=== PATIENT | male | born 1975 | race Caucasian/White ===

== ENCOUNTER 2019-10-08 09:05 | Outpatient (CLI) | payer OTHER, SELFPAY ==
[2019-10-09 15:31] LABS: COVID-19 RT-PCR Result NEGATIVE (Negative)
== END 2019-10-08 09:25 ==
PROVIDERS: PCP Family Medicine; Visit Provider Family Medicine
DX: R05 Cough (principal)
CPT/HCPCS: U0003

== ENCOUNTER 2020-02-26 08:41 | Outpatient (CLI) | payer OTHER, SELFPAY ==
[2020-02-28 10:09] LABS: Patient Race White; SARS-CoV-2 RNA Undetected (Undetected); SARS-CoV-2 Specimen Source Nasopharynx
== END 2020-02-26 09:01 ==
PROVIDERS: PCP Family Medicine; Visit Provider Family Medicine
DX: J02.9 Acute pharyngitis, unspecified (principal)
CPT/HCPCS: U0003

== ENCOUNTER 2020-07-11 21:56 | Outpatient (CLI) | payer OTHER, SELFPAY ==
--- NOTE | 2020-07-11 09:00 | DI.RAD_ITS ---
EXAM: XR CHEST 2V PA LATERAL CLINICAL HISTORY: SOB x 1.5 years, R06.02. TECHNIQUE: 2D digital imaging was performed. COMPARISON: Chest x-ray June 2006 FINDINGS: Heart size is normal. The mediastinum is not widened. Lungs are clear. No infiltrates nor pleural effusions. Thoracic scoliosis again noted IMPRESSION: No acute pulmonary findings.Mild thoracic scoliosis is unchanged from 2017. DATA REPOSITORY: RADIATION DOSE DELIVERED:
== END 2020-07-11 21:57 ==
LOC: DI 21:59
PROVIDERS: PCP Nurse Practitioner Family; Visit Provider Nurse Practitioner Family
DX: R06.02 Shortness of breath (principal)
CPT/HCPCS: 71046

== ENCOUNTER 2020-07-12 03:24 | Outpatient (CLI) | payer OTHER, SELFPAY ==
[2020-07-12 08:36] LABS: Hemoglobin A1C 5.6 % (<5.7)
[2020-07-12 09:14] LABS: Calculated LDL 98 mg/dL (<100); Cholesterol 171 mg/dL (<200); HDL Cholesterol 64 mg/dL (40-60); Triglyceride 47 mg/dL (<150)
== END 2020-07-12 03:25 | disposition home or self-care (01) ==
LOC: LBO 03:24
PROVIDERS: PCP Nurse Practitioner Family; Visit Provider Nurse Practitioner Family
DX: Z13.220 Encounter for screening for lipoid disorders (principal); Z13.1 Encounter for screening for diabetes mellitus; Z20.822 Contact with and (suspected) exposure to COVID-19
CPT/HCPCS: 36415; 80061; U0003; 83036

== ENCOUNTER 2020-07-12 08:09 | Outpatient (CLI) | payer OTHER, SELFPAY ==
[2020-07-13 13:28] LABS: COVID-19 RT-PCR UVMMC Result Negative (Negative)
== END 2020-07-12 08:10 | disposition home or self-care (01) ==
LOC: LBO 08:10
PROVIDERS: PCP Nurse Practitioner Family; Visit Provider Nurse Practitioner Family
DX: Z20.822 Contact with and (suspected) exposure to COVID-19 (principal)
CPT/HCPCS: U0003

== ENCOUNTER → 2022-01-17 15:09 | Outpatient (CLI) | payer OTHER, SELFPAY ==
--- NOTE | 2022-01-17 15:00 | DI.RAD_ITS ---
Exam(s) XR ANKLE RT COMPLETE EXAM: XR ANKLE RT COMPLETE CLINICAL HISTORY: Pain/swelling M25.571 PAIN. TECHNIQUE: 2D digital imaging was performed. COMPARISON: No exams were available for comparison FINDINGS: 3 views No evidence of fracture nor widening of the mortise. Talar dome exhibits some hypodensity medially, possibly developing subarticular cyst. There is no obvious osteochondral defect. Tibial plafond vera ears unremarkable. On the lateral view there is some mild narrowing in the anterior aspect ankle-tib iotalar joint. Subtalar joint appears unremarkable. No os trigonum. No inferior calcaneal spur. N o abnormal density in the pre Achilles fat pad. IMPRESSION: Mild degenerative changes in the anterior aspect of the tibiotalar-ankle joint. DATA REPOSITORY: RADIATION DOSE DELIVERED:
--- NOTE | 2022-01-17 15:00 | DI.RAD_ITS ---
Exam(s) XR FOOT RT COMPLETE EXAM: XR FOOT RT COMPLETE CLINICAL HISTORY: Pain/swelling M79.671 PAIN. TECHNIQUE: 2D digital imaging was performed. COMPARISON: No exams were available for comparison FINDINGS: 3 views No evidence of fracture or diastasis of the Kimmy jayesh joint. No degenerative changes in the great to e metatarsophalangeal joint. No hallux valgus. Bone density normal. No osseous lesions. No pes pl anus. Small sesamoid bone noted just proximal to the navicular tuberosity on the medial aspect of th e foot, most probably within the posterior tibial tendon. No inferior calcaneal spur. No plantar fa scia calcification. IMPRESSION: No significant radiograph findings in the right foot. DATA REPOSITORY: RADIATION DOSE DELIVERED:
== END ==
PROVIDERS: PCP Nurse Practitioner Family; Visit Provider Nurse Practitioner Family
DX: M19.071 Primary osteoarthritis, right ankle and foot (principal); M79.671 Pain in right foot
CPT/HCPCS: 73610; 73630

== ENCOUNTER 2022-06-14 07:32 | Day surgery (SDC) | payer OTHER, SELFPAY ==
--- NOTE | 2022-06-13 20:21 | W.PM.DSUDISC ---
Date of service: 06/14/22 Time of Service: 09:49 Discharge Plan Disposition Patient Disposition: Home Condition: Good Discharge Details Reason For Visit: Screening colonoscopy Attending Provider: Reed Sinha Primary Care Provider: Philip Machado Home Meds and New Rx's Prescriptions: Continued loratadine [Loradamed] 10 mg tablet 10 mg PO DAILY Qty: 90 3RF Discontinued bisacodyl [Dulcolax (bisacodyl)] 5 mg tablet,delayed release (DR/EC) 5 mg PO ONCE Qty: 4 0RF Rx Instructions: Take according to provider's instructions for colonoscopy prep. polyethylene glycol 3350 17 gram/dose powder 17 g PO ONCE Qty: 238 0RF Rx Instructions: To be taken as directed by prescriber's office for colonoscopy prep. Discharge Instructions Instructions: Hemorrhoids (GEN) Additional Instructions: 1. If tolerated, consume a soft, low fiber diet for 1-2 days. 2[address] Do not drive, drink alcohol, operate machinery, make critical decisions, or do activities that require coordination or balance for 24 hours. 3. Because air was put into your colon during the procedure, expelling air from your rectum (passing gas or farting) is normal. 4. You may not have a bowel movement for 1-3 days because of the colonoscopy prep. This is normal. 5. Go directly to the emergency room if you notice any of the following: Develop chills (warm to touch), or if you have a thermometer and your temperature is above 101 Difficulty breathing or difficultly swallowing Persistent vomiting Severe abdominal pain, other than gas cramps Severe chest pain Black, tarry stools Any bleeding ? exceeding one tablespoon 6. Call your physician if the site where your intravenous was started becomes red, swollen, painful, and warm to touch. 7. Your physician has reviewed your pre-procedure medications. Please continue to take those medications as previously ordered. You will be given specific information/education regarding any changes to your medications before leaving. Activity:: Activity as Tolerated Diet:: As Tolerated Discharge Orders Discharge Orders: Discharge Order (Routine); Ordered 06/13/22 Ordered By: Reed Sinha DS: Diagnosis Discharge Diagnosis (1) Screening for colon cancer: Status: Acute Asessment and Plan: Jorge L, we were able to perform a complete colonoscopy today. You have some very mild internal hemorrhoids, but otherwise the colonoscopy was totally normal. I recommend that you get another one in 10 years to minimize your chances of colon cancer.
--- NOTE | 2022-06-13 20:23 | W.COLOREPORT ---
Date of service: 06/14/22 Time of Service: 09:50 Colonoscopy Report Date of procedure: 06/14/22 Pre-op diagnosis general: Screening colonoscopy Post-op diagnosis procedure note: same Procedure: Colonoscopy Surgeon: Reed Sinha Anesthesia Type: General:No Airway Estimated blood loss (mL): 0 Pathology: none sent Complications: None Disposition: same day Indications: Jorge L is a 46-year-old male here for his first screening colonoscopy Prep: Miralax/Dulcolax Procedure Start Time: 09:17 Procedure End Time: 09:35 Retraction Time: 14 Findings: Mild internal hemorrhoids Procedure Description: After the induction of monitored anesthetic care, and with the patient in left lateral decubitus position, I began by performing an external anorectal exam.? Perineum and skin were normal, as was the anal verge.? There was no evidence of external hemorrhoids.? Next, I performed a digital rectal exam.? I did not appreciate any abnormal findings.? Next, I advanced a colonoscope into the rectal vault.? I performed retroflexion.? There were very mild internal grade 1 hemorrhoids.? Using insufflation, I then advanced the colonoscope beyond the rectal folds and into the sigmoid colon before advancing towards the cecum.? The quality of the prep was excellent.? The scope was noted to be in the cecum by identification of the ileocecal valve and appendiceal orifice.? I then began withdrawing the colonoscope using repeated irrigation as necessary for full evaluation of the colonic mucosa. ?Once the scope was withdrawn to the level of the rectum, great care was taken to examine portions of the rectal folds.? Finally, the scope was withdrawn and the patient was brought to the same-day surgery recovery unit as the anesthetic wore off. ?The findings and instructions were shared with the patient prior to discharge.
--- NOTE | 2022-06-14 07:04 | W.ANESPRE ---
General Info Date of Service Date Performed: 06/14/22 Height: 6 ft 1 in Weight: 88.451 kg Body Mass Index (BMI): 25.7 Surgical Procedure: Operation Date: 06/14/22 09:20 Proposed Procedure Side Surgeon vanessa Sinha MD Meds Allergies and Home Medications Allergies Allergy/AdvReac Type Severity Reaction Status Date / Time poison clarissa extract Allergy Severe Verified 06/14/22 08:01 Penicillins Allergy Intermediate rash Verified 06/14/22 08:01 Home Medication Medication Instructions Recorded loratadine 10 mg tablet (Loradamed) 10 mg PO DAILY #90 tabs 01/17/22 Current Visit Medications: Current Medications Generic Name Dose Route Start Last Admin Trade Name Freq PRN Reason Stop Dose Admin Hyoscyamine Sulfate 0.125 mg 06/13/22 20:24 Hyoscyamine 0.125 Mg Sl/Oral/Chew SL DIRECTED PRN Ringer's Solution 1,000 mls @ 80 mls/hr 06/14/22 06:00 IV 07/13/22 23:59 [facility] IV Miscellaneous Supplies 1 each 06/14/22 06:00 Iv Access IV 07/13/22 23:59 DIRECTED ELOISE Ondansetron HCl 4 mg 06/13/22 20:24 Ondansetron 4 Mg/2 Ml Vial IVP Q4H PRN PRN Nausea / Vomiting Sodium Chloride 0 ml 06/14/22 06:00 Normal Saline Flush 10 Ml Syr IV 07/13/22 23:59 PRN PRN Sodium Chloride 0 ml 06/14/22 06:00 Normal Saline 10 Ml Vial IJ 07/13/22 23:59 DIRECTED PRN Sterile Water 0 ml 06/14/22 06:00 Water,Injection,Sterile 10 Ml Vial IJ 07/13/22 23:59 DIRECTED PRN PFSH Active Problems Active Problems: Problem Status Onset Code Screening for colon cancer Z12.11 Right foot pain M79.671 Right ankle pain M25.571 Health care maintenance Z00.00 Environmental allergies Z91.09 Tobacco Smoking/Tobacco Use Status: Never Passive smoking exposure: Yes Second hand exposure: Yes Alcohol Alcohol Intake: current Alcohol intake frequency: a few times a week Alcohol type: beer Substance Use Substance use: Never Substance use type: does not use Vital Signs and Lab Results Lab Results Blood Type / Crossmatch: No Data to Display Complete Blood Count: No Data to Display Complete Metabolic Panel: No Data to Display Liver Function Panel: No Data to Display Coagulation Panel: No Data to Display Cardiac Panel: No Data to Display Arterial Blood Gas: No Data to Display Venous Blood Gas: No Data to Display Pancreas Panel: No Data to Display Thyroid Panel: No Data to Display Infectious Disease: No Data to Display Blood Cultures: No Data to Display Toxicology Panel: No Data to Display Anesthesia Assessment and Plan Anesthesia History Personal History: No History of General Anesthesia Family History: No Family History of Anesthesia Complications Exercise Tolerance Exercise Tolerance: Metabolic Equivalents>4 Pertinent Negatives Pertinent Negatives: No Symptoms of GERD Cardiac & Pulmonary Exam Cardiac Exam: Normal S1/S2 Heart Sounds Pulmonary Exam: Clear Bilateral Breath Sounds Implantable Cardiac Device Does patient have a Pacemaker or an ICD?: No Airway Exam Known Difficult Airway: No Mallampati Class: 2 Mouth Opening: Normal (> 3cm) Thyromental Distance: Greater than 3 cm Neck Range of Motion: Full ROM Neck Circumference: Normal Teeth Condition: Normal Dentition ASA Classification ASA Score: ASA 2 Emergency Case?: No NPO Status NPO Status: NPO Clears >2 hours, Solids >8 hours Anesthesia Plan Resuscitation Status: Full Code Anesthesia Technique: General Anesthesia Airway Planned: Natural Airway Monitors Used: Standard Monitors
[2022-06-14 07:35] VITALS: BP 123/82; PULSE 56; RESP 16; TEMP 36; O2SAT 98
[2022-06-14] MEDS: Lactated Ringers 1,000 ML 80 ML IV (08:18)
[2022-06-14 09:00] VITALS: BMI 25.7
[2022-06-14 09:42] VITALS: BP 128/73; PULSE 71; RESP 16; TEMP 36.2; O2SAT 96
[2022-06-14 10:11] VITALS: BP 120/83; PULSE 60; RESP 18; TEMP 36.2; O2SAT 97
--- NOTE | 2022-06-14 10:15 | W.ANESPOSTOP ---
Postoperative Evaluation Date, Time and Location Date Performed: 06/14/22 Time Performed: 10:15 Patient Location: Day Surgery Unit Vital Signs Most Recent Imported Vital Signs: Most Recent Vital Signs Temp Pulse Resp BP Pulse Ox 36.2 C L 60 18 120/83 97 06/14/22 10:11 06/14/22 10:11 06/14/22 10:11 06/14/22 10:11 06/14/22 10:11 Pain Score Most Recent Pain Score: Most Recent Pain Score Pain Level 0 06/14/22 10:11 Assessment Mental Status: Awake (Alert & Oriented to Patient Baseline) Airway and Respiratory Function: Patent airway with normal (patient baseline) respiratory exam Cardiovascular Function: Hemodynamically Stable Hydration Status: Adequately Hydrated Nausea & Vomiting: No Nausea or Vomiting Pain: Pt. Denies Any Pain Peripheral Nerve Block: Patient did not receive a nerve block
== END 2022-06-14 10:26 | disposition home or self-care (01) ==
PROVIDERS: PCP Nurse Practitioner Family; Visit Provider Surgery
PROC: 0DJD8ZZ Inspection of Lower Intestinal Tract, Via Natural or Artificial Opening Endoscopic (ICD-10-PCS; CPT 45378; principal; 2022-06-14 09:15)
DX: Z12.11 Encounter for screening for malignant neoplasm of colon (principal)
CPT/HCPCS: 45378

== ENCOUNTER 2024-08-18 11:49 | Outpatient (CLI) | payer OTHER, SELFPAY ==
[2024-08-18 10:28] LABS: Hemoglobin A1C 5.2 % (<5.7)
[2024-08-18 10:57] LABS: Calculated LDL 84 mg/dL (<100); Cholesterol 176 mg/dL (<200); HDL Cholesterol 86 mg/dL (>or=40); Triglyceride 30 mg/dL (<150)
[2024-08-19 12:37] LABS: Lyme Ab w Rflx to Lyme Confirm Negative (Negative)
[2024-08-20 23:58] LABS: Anaplasma phagocytophilum Negative (Negative); B. miyamotoi PCR Negative (Negative); Babesia divergens/MO-1 Negative (Negative); Babesia duncani Negative (Negative); Babesia microti Negative (Negative); Ehrlichia chaffeensis Negative (Negative); Ehrlichia ewingii/canis Negative (Negative); Ehrlichia muris eauclairensis Negative (Negative)
== END 2024-08-18 11:50 | disposition home or self-care (01) ==
LOC: LBO 11:49
PROVIDERS: PCP Nurse Practitioner Family; Visit Provider Nurse Practitioner Family
DX: Z13.220 Encounter for screening for lipoid disorders (principal); Z13.1 Encounter for screening for diabetes mellitus; W57.XXXA Bitten or stung by nonvenomous insect and other nonvenomous arthropods, initial encounter
CPT/HCPCS: 36415; 80061; 87798; 83036; 86618